=== PATIENT | female | born 1980 | race Caucasian/White ===

== ENCOUNTER 2019-09-12 10:34 | Outpatient (CLI) | payer BC, SELFPAY ==
--- NOTE | ~2019-09-12 | MM_ITS ---
EXAMINATION: MM screening [facility] BI w karlie HISTORY: Screening mammogram TECHNIQUE: Craniocaudal and mediolateral oblique 3-D tomosynthesis images were obtained and synthetic 2-D images were generated. CAD analysis was submitted and interpreted. COMPARISON: Comparison to multiple prior studies sequentially, with oldest reviewed study dated 01/24. BREAST PARENCHYMAL COMPOSITION: The breasts are heterogeneously dense, which may obscure small masses . FINDINGS: There are postsurgical changes with architectural distortion in the left breast. There is n o evidence of suspicious mass, calcification, or architectural distortion to suggest malignancy in ei ther breast. There has been no suspicious interval change. IMPRESSION: 1. No mammographic evidence of malignancy. 2. Recommend routine screening mammography in one year. BI-RADS Category 2: Benign finding(s). Reviewed, dictated and finalized at location A.
== END 2019-09-12 10:35 | disposition home or self-care (01) ==
PROVIDERS: PCP Internal Medicine; Visit Provider Internal Medicine Medical Oncology
DX: Z12.31 Encounter for screening mammogram for malignant neoplasm of breast (principal)
CPT/HCPCS: 77063; 77067

== ENCOUNTER 2020-09-25 14:45 | Outpatient (CLI) | payer BC, SELFPAY ==
--- NOTE | ~2020-09-25 | MM_ITS ---
EXAMINATION: MM screening [facility] BI w karlie HISTORY: Screening mammogram TECHNIQUE: Craniocaudal and mediolateral oblique 3-D tomosynthesis images were obtained and synthetic 2-D images were generated. CAD analysis was submitted and interpreted. COMPARISON: 09/12/2019, 02/15/2018, 02/12/2017 BREAST PARENCHYMAL COMPOSITION: The breasts are heterogeneously dense, which may obscure small masses . FINDINGS: Stable lumpectomy changes are noted in the left breast. There is no evidence of suspicious mass, calcification, or architectural distortion to suggest malignancy in either breast. There has be en no suspicious interval change. IMPRESSION: 1. No mammographic evidence of malignancy. 2. Recommend routine screening mammography in one year. BI-RADS Category 2: Benign finding(s). Reviewed, dictated and finalized at location A.
== END 2020-09-25 14:46 | disposition home or self-care (01) ==
LOC: ANHIMG 14:48
PROVIDERS: PCP Internal Medicine; Visit Provider Obstetrics & Gynecology
DX: Z12.31 Encounter for screening mammogram for malignant neoplasm of breast (principal)
CPT/HCPCS: 77063; 77067

== ENCOUNTER 2021-07-23 14:00 | Outpatient (RCR) | payer BC, SELFPAY ==
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
--- NOTE | 2021-06-27 15:38 | PCPTNOTE ---
Called patient after she did not show for appointment this date. Patient reports she thought her appointment was at 2:15 today.
--- NOTE | 2021-07-04 14:20 | PCPTNOTE ---
Patient called & cancelled scheduled appointment this date due to needing to reschedule appointment, no other reasoning.
--- NOTE | 2021-07-10 10:56 | PCPTNOTE ---
Patient called & cancelled scheduled appointment this date due to sick kid.
--- NOTE | 2021-07-11 15:12 | PTOPEVAL ---
PHYSICAL THERAPY PROGRESS REPORT Thank you for referring Alma De Guzman to [facility].? Please review, sign, date and return this plan of care NEVA. I agree with and certify that the following plan of care is medically necessary. Referring Physician Date Attending Provider: Amol Finn MD Progress Diagnosis right humeral fx Onset 2 months ago Cause fall Subjective Information pain comes and goes with some Query Text:As Reported By Patient/ very severe pain and some very Family manageable pain. She is going to call Dr. Mcgrath's office to determine if she is going to get an MRI. Self Report Pain Assessment Right Upper Shoulder(s) Reported Pain Level 4 Pain Description Dull Pain Aggravating Factors Changing Position,Exercise/ Activity,Lifting,Prolonged Position Other Pain Aggravating Factors sharp pain with active use Pain Behaviors Grimacing,Guarding,Moaning Pain Score Pain Score 4: Self Report Interventions Used Interventions Used By Clinicians Exercise,Manual Therapy Techniques Upper Extremity Range of Motion General Upper Extremity Range of Motion Gross Upper Extremity Range of Motion right shoulder active motion: Comments flexion 91', abduction 71, ER 30', right shoulder assisted motion supine: flexion 136', ER 35', General Exercise General Exercises Side Right Exercise Type Active,Stretching Exercise Description -scapular retraction Query Text:Record Sets, Reps, -wall walk and wall slide with Resistance, and Position towel with left arm to assist -upper trapezius stretch [id number] - pulleys 3minutes flexion -isometric shoulder external rotation and internal rotation in supine - prone scap retraction with shoulder extension x 15 reps Exercise Comments . Manual Therapy Manual Therapy Side Right Manual Therapy Location Shoulder Patient Position Supine Manual Therapy Treatment Passive Stretching,Soft Tissue Mobilization Manual Therapy Movement Direction Distraction Movement Findings Moderate Hypomobility,Guarding Treatment Comments - Passive
--- NOTE | 2021-07-16 10:29 | PCPTNOTE ---
Patient arrived early and cancelled scheduled appointment this date due to thinking her appointment was at 09:15am; she was unable to stay later due to having a moving company come.
--- NOTE | 2021-07-23 15:09 | PCPTNOTE ---
Patient did not show up for scheduled appointment this date.
--- NOTE | 2021-08-14 16:44 | PCPTNOTE ---
PHYSICAL THERAPY DISCHARGE NOTE Attending Provider: Amol Finn MD Patient:Alma De Guzman Date of :1980 Patient has not returned for any further treatments since 07/23/2021, therefore she will be discharged at this time. Patient?s initial visit was on 06/17/2021 and had a total of 4 visits. Thank you for referring this patient to [facility]. Please review, sign, date and return this discharge summary NEVA. I have been updated about the patient's current status and I agree with discharge from the above service at this time. Referring Physician Date
== END 2021-09-02 11:39 | disposition home or self-care (01) ==
LOC: ANHPT 14:00
PROVIDERS: PCP Internal Medicine; Visit Provider Orthopaedic Surgery
DX: S42.201D Unspecified fracture of upper end of right humerus, subsequent encounter for fracture with routine healing (principal)
CPT/HCPCS: 97014; 97110; 97140; 97162; G0283

== ENCOUNTER 2021-07-27 12:34 | Outpatient (CLI) | payer BC, SELFPAY ==
--- NOTE | ~2021-07-27 | MR_ITS ---
. EXAMINATION: MR shoulder RT wo con DATE: 07/27/2021 13:26 INDICATION: Right shoulder pain. TECHNIQUE: Magnetic resonance imaging (MRI) of the right shoulder was performed without intravenous c ontrast. Sequences included axial PD-weighted FS FSE, coronal oblique PD-weighted FS FSE and T2-weigh laura FS FSE, and sagittal oblique T2-weighted FS FSE and T1-weighted FSE. COMPARISON: Right shoulder radiograph 07/08/21 FINDINGS: Coracoacromial arch: The acromion undersurface is curved in morphology (type II). The acromioclavicular joint is normal. T here is mild subacromial/subdeltoid bursitis. Rotator cuff: There is mild supraspinatus and infraspinatus tendinopathy. Teres minor tendon is normal. Subscapular is tendon is normal. There is no free asymmetric fatty atrophy of the rotator cuff muscle bellies. Biceps tendon and glenoid labrum: Biceps tendon is in bicipital groove. There is a partial tear of biceps tendon. There is a tear of th e glenoid labrum from 10:00 to 2:00 (SLAP tear). Fluid: There is a small glenohumeral joint effusion. Bones/cartilage: There is a comminuted fracture of proximal right humerus with fracture lines involving the anterior a rticular surface, greater tuberosity, and surgical neck. At the surgical neck, the distal fracture fr agment demonstrates impaction, 9 mm anterior displacement, and 20 degrees posterior angulation. A fra cture fragment involving the lesser tuberosity and anterior articular surface demonstrates 10 mm offs et medial displacement with respect to the posterior articular surface fracture fragment. There is ma lalignment of fracture fragments at the bicipital groove. The glenoid cartilage is normal. IMPRESSION: 1. Comminuted fracture of proximal right humerus. 2. Partial tear of biceps tendon. 3. Small glenohumeral joint effusion. 4. Mild subacromial/subdeltoid bursitis. Reviewed, dictated and finalized at location A. LOG SPECIALIST
== END 2021-07-27 12:35 | disposition home or self-care (01) ==
LOC: ANHIMG 12:42
PROVIDERS: PCP Internal Medicine; Visit Provider Orthopaedic Surgery
DX: M25.411 Effusion, right shoulder (principal); M75.51 Bursitis of right shoulder; S42.291A Other displaced fracture of upper end of right humerus, initial encounter for closed fracture; X58.XXXA Exposure to other specified factors, initial encounter
CPT/HCPCS: 73221